=== PATIENT | male | born 1950 | race Caucasian/White ===

== ENCOUNTER 2020-11-04 18:32 | Emergency (ER) | payer MEDICARE ==
[~2020-11-04] VITALS: Ht 175.3 cm; Wt 81.6 kg
[2020-11-04 18:32] VITALS: BP_SYST 136
[2020-11-04] MEDS ORDERED: MORPHINE SULFATE 10 MG/ML VIAL IM ONE (20:45)
[2020-11-04] MEDS ORDERED: HYDROCORTISONE ACETATE 1 SUPP (ANUSOL HC) RC ONE ×3 (21:15→22:01)
[2020-11-04] MEDS ORDERED: LIDOCAINE/PRILOCAINE 5 GM CREAM (EMLA) TP ONE (21:15)
[2020-11-04] MEDS ORDERED: NACL 0.9% 2,000 ML IV ONE (21:15)
[2020-11-04 21:39] LABS: BASOPHILS % (AUTO) 0.2 % (0.0-2.0); EOSINOPHILS # (AUTO) 0.1 K/uL (0.0-0.4); HEMATOCRIT 40.2 % (36-54); HEMOGLOBIN 13.5 g/dL (14.0-18.0); LYMPHOCYTES # (AUTO) 0.5 K/uL (1.0-5.5); LYMPHOCYTES % (AUTO) 3.8 % (20.5-51.5); MEAN CORPUSCULAR HEMOGLOBIN 29 pg (27-31); MEAN CORPUSCULAR HGB CONC 34 % (32-36); MEAN CORPUSCULAR VOLUME 88 fL (79.0-98.0); MONOCYTES # (AUTO) 0.4 K/uL (0.0-1.0); MONOCYTES % (AUTO) 2.9 % (1.7-9.3); NEUTROPHILS # (AUTO) 12.7 K/uL (1.8-7.7); NEUTROPHILS % (AUTO) 92.1 % (40.0-70.0); PLATELET COUNT (AUTO) 193 K/uL (130-430); RED BLOOD CELL COUNT(AUTO) 4.59 MIL/uL (4.2-6.2); RED CELL DISTRIBUTION WIDTH 12.7 % (9.0-15.0); WHITE BLOOD COUNT (AUTO) 13.8 K/uL (4.8-10.8)
[2020-11-04 21:53] LABS: CREATININE 1.42 mg/dL (0.55-1.30); POTASSIUM 4.2 mmol/L (3.5-5.1)
[2020-11-04 21:59] LABS: ALBUMIN 3.2 g/dL (3.4-4.8); TOTAL BILIRUBIN 0.6 mg/dL (0.0-1.0)
[2020-11-05] MEDS ORDERED: INSULIN REGULAR, HUMAN 10 UNITS/0.1 ML INJ IVP ONE ×2 (01:30→01:45)
[2020-11-05 04:34] VITALS: BP_SYST 136
== END 2020-11-05 04:38 | disposition home or self-care (01) ==
LOC: SED 18:32
DX: E11.65 Type 2 diabetes mellitus with hyperglycemia (principal); K64.4 Residual hemorrhoidal skin tags; I10 Essential (primary) hypertension
CPT/HCPCS: 36415; 74176; 76376; 80053; 82962; 85025; 96361; 96372; 96374; 99285; J1815; J2270; J7030